=== PATIENT | male | born 1945 | race Caucasian/White ===

== ENCOUNTER 2023-02-06 17:32 | Inpatient (IN) | payer MEDICARE, OTHER ==
[~2023-02-06] VITALS: Ht 162.6 cm; Wt 72.1 kg
[2023-02-06 21:00] VITALS: BP 132/62; PULSE 84; RESP 19; TEMP 98.6; O2SAT 95
[2023-02-06] MEDS ORDERED: HydrALAZINE HCL 25 MG TABLET PO PRN (21:30)
[2023-02-06] MEDS: GABAPENTIN 300 MG CAPSULE PO SCH (22:21)
[2023-02-06] MEDS: SENNOSIDES 8.6 MG TABLET PO SCH (22:22)
[2023-02-06] MEDS: DOCUSATE SODIUM 100 MG CAPSULE PO SCH (22:23)
[2023-02-06] MEDS: ETHYL ALCOHOL 62% ANTISEPTIC NASAL SANITIZER 0.6 ML AMPUL NASAL SCH (22:23)
[2023-02-06] MEDS: ATORVASTATIN CALCIUM 40 MG TABLET PO SCH (22:23)
[2023-02-06] MEDS: ACETAMINOPHEN 325 MG TABLET PO PRN (23:40)
[2023-02-06] MEDS: HEPARIN SODIUM,PORCINE 5,000 UNITS/ML VIAL SQ SCH (23:41)
[2023-02-07 01:45] VITALS: O2SAT 95
[2023-02-07 07:38] LABS: BASOPHILS % (AUTO) 0.7 % (0.0-2.0); EOSINOPHILS % (AUTO) 3.3 % (1.0-6.0); HEMATOCRIT 43.7 % (41-53); HEMOGLOBIN 14.4 g/dL (13.5-17.5); LYMPHOCYTES % (AUTO) 32.6 % (22.0-44.0); MEAN CORPUSCULAR HEMOGLOBIN 30.4 pg (26.0-34.0); MEAN CORPUSCULAR HGB CONC 32.9 G/dL (31.0-37.0); MEAN CORPUSCULAR VOLUME 92 fL (80-100); MONOCYTES # (AUTO) 0.8 K/uL (0.1-1.0); MONOCYTES % (AUTO) 12.9 % (2.0-9.0); NEUTROPHILS # (AUTO) 3.1 K/uL (1.8-7.7); NEUTROPHILS % (AUTO) 50.5 % (40.0-70.0); PLATELET COUNT (AUTO) 193 K/uL (150-450); RED BLOOD CELL COUNT(AUTO) 4.74 MIL/uL (4.50-5.90); RED CELL DISTRIBUTION WIDTH 13.5 % (11.5-14.5)
[2023-02-07 07:55] LABS: ALANINE AMINOTRANSFERASE 40 U/L (12-78); ALBUMIN 2.9 g/dL (3.4-5.0); ALKALINE PHOSPHATASE 65 U/L (46-116); ANION GAP 5 mmol/L (8-16); ASPARTATE AMINOTRANSFERASE 33 U/L (15-37); BILIRUBIN,TOTAL 0.5 mg/dL (0.1-1.0); CALCIUM, TOTAL 8.7 mg/dL (8.8-10.5); CARBON DIOXIDE 30 mmol/L (22-29); CHLORIDE 107 mmol/L (98-107); CREATININE 1.02 mg/dL (0.60-1.30); GLOMERULAR FILTR. RATE CALC > 60 mL/min (>60); GLUCOSE,RANDOM 98 mg/dL (70-110); POTASSIUM 4.3 mmol/L (3.5-5.1); SODIUM SERUM 142 mmol/L (136-145); TOTAL PROTEIN, SERUM 6.1 g/dL (6.4-8.2)
[2023-02-07 08:00] VITALS: BP 128/73; PULSE 84; RESP 19; TEMP 98.8; O2SAT 98
[2023-02-07] MEDS: CLOPIDOGREL BISULFATE 75 MG TABLET PO SCH (08:00)
[2023-02-07] MEDS: DOCUSATE SODIUM 100 MG CAPSULE PO SCH ×2 (08:00→20:21)
[2023-02-07] MEDS: GABAPENTIN 300 MG CAPSULE PO SCH ×2 (08:00→20:22)
[2023-02-07] MEDS: TAMSULOSIN HCL 0.4 MG CAPSULE PO SCH (08:00)
[2023-02-07] MEDS: ASPIRIN 81 MG CHEWABLE TABLET PO SCH (08:00)
[2023-02-07] MEDS: ETHYL ALCOHOL 62% ANTISEPTIC NASAL SANITIZER 0.6 ML AMPUL NASAL SCH ×2 (08:01→20:22)
[2023-02-07] MEDS: HEPARIN SODIUM,PORCINE 5,000 UNITS/ML VIAL SQ SCH ×3 (08:01→23:05)
[2023-02-07 10:50] VITALS: O2SAT 98
[2023-02-07 20:11] VITALS: BP 106/59; PULSE 81; RESP 18; TEMP 98.3; O2SAT 97
[2023-02-07] MEDS: SENNOSIDES 8.6 MG TABLET PO SCH (20:21)
[2023-02-07] MEDS: ATORVASTATIN CALCIUM 40 MG TABLET PO SCH (20:21)
[2023-02-08 01:22] VITALS: O2SAT 97
[2023-02-08 07:26] LABS: CHOL/HDL RATIO 3.8 (4.2-7.3)
[2023-02-08] MEDS: HEPARIN SODIUM,PORCINE 5,000 UNITS/ML VIAL SQ SCH ×3 (08:37→23:07)
[2023-02-08] MEDS: GABAPENTIN 300 MG CAPSULE PO SCH ×2 (08:37→20:19)
[2023-02-08] MEDS: DOCUSATE SODIUM 100 MG CAPSULE PO SCH ×2 (08:37→20:19)
[2023-02-08] MEDS: TAMSULOSIN HCL 0.4 MG CAPSULE PO SCH (08:37)
[2023-02-08] MEDS: CLOPIDOGREL BISULFATE 75 MG TABLET PO SCH (08:37)
[2023-02-08] MEDS: ETHYL ALCOHOL 62% ANTISEPTIC NASAL SANITIZER 0.6 ML AMPUL NASAL SCH ×2 (08:37→20:19)
[2023-02-08] MEDS: ASPIRIN 81 MG CHEWABLE TABLET PO SCH (08:37)
[2023-02-08 09:37] VITALS: BP 108/74; PULSE 90; RESP 19; TEMP 97.9; O2SAT 96
[2023-02-08 20:00] VITALS: BP 135/73; PULSE 83; RESP 16; TEMP 98; O2SAT 97
[2023-02-08] MEDS: ATORVASTATIN CALCIUM 40 MG TABLET PO SCH (20:19)
[2023-02-08] MEDS: SENNOSIDES 8.6 MG TABLET PO SCH (20:19)
[2023-02-08] MEDS: MELATONIN 3 MG TABLET PO PRN (21:33)
[2023-02-08 23:42] VITALS: O2SAT 97
[2023-02-09] MEDS ORDERED: *PATIENT'S OWN MED [ENTER DRUG, DOSE, FREQUENCY IN COMMENTS] CLINICAL SCH (07:30)
[2023-02-09 08:00] VITALS: BP 103/51; PULSE 83; RESP 18; TEMP 98.2; O2SAT 100
[2023-02-09] MEDS: HEPARIN SODIUM,PORCINE 5,000 UNITS/ML VIAL SQ SCH ×3 (08:12→23:05)
[2023-02-09] MEDS: ASPIRIN 81 MG CHEWABLE TABLET PO SCH (08:12)
[2023-02-09] MEDS: ETHYL ALCOHOL 62% ANTISEPTIC NASAL SANITIZER 0.6 ML AMPUL NASAL SCH ×2 (08:12→20:15)
[2023-02-09] MEDS: DOCUSATE SODIUM 100 MG CAPSULE PO SCH ×2 (08:12→20:16)
[2023-02-09] MEDS: VASCEPA 1 GM PO SCH ×2 (08:12→17:18)
[2023-02-09] MEDS: CLOPIDOGREL BISULFATE 75 MG TABLET PO SCH (08:13)
[2023-02-09] MEDS: TAMSULOSIN HCL 0.4 MG CAPSULE PO SCH (08:13)
[2023-02-09] MEDS: GABAPENTIN 300 MG CAPSULE PO SCH ×2 (08:13→20:16)
[2023-02-09 09:14] VITALS: O2SAT 100
[2023-02-09] MEDS: MELATONIN 3 MG TABLET PO PRN (20:16)
[2023-02-09] MEDS: ATORVASTATIN CALCIUM 40 MG TABLET PO SCH (20:16)
[2023-02-09] MEDS: SENNOSIDES 8.6 MG TABLET PO SCH (20:16)
[2023-02-09 20:19] VITALS: BP 110/51; PULSE 81; RESP 16; TEMP 97.8; O2SAT 97
[2023-02-09 22:24] VITALS: O2SAT 97
[2023-02-10] MEDS ORDERED: FAMO20 PO (00:48)
[2023-02-10] MEDS ORDERED: ATOR20TA PO (00:48)
[2023-02-10] MEDS ORDERED: TAMS-13 PO (00:48)
[2023-02-10] MEDS ORDERED: GABA-1181 PO (00:48)
[2023-02-10 07:45] VITALS: BP 102/59; PULSE 78; RESP 18; TEMP 97.7; O2SAT 96
[2023-02-10] MEDS: TAMSULOSIN HCL 0.4 MG CAPSULE PO SCH (07:55)
[2023-02-10] MEDS: GABAPENTIN 300 MG CAPSULE PO SCH ×2 (07:55→20:52)
[2023-02-10] MEDS: ETHYL ALCOHOL 62% ANTISEPTIC NASAL SANITIZER 0.6 ML AMPUL NASAL SCH ×2 (07:55→20:52)
[2023-02-10] MEDS: VASCEPA 1 GM PO SCH ×2 (07:55→16:44)
[2023-02-10] MEDS: DOCUSATE SODIUM 100 MG CAPSULE PO SCH ×3 (07:55→20:53)
[2023-02-10] MEDS: HEPARIN SODIUM,PORCINE 5,000 UNITS/ML VIAL SQ SCH ×3 (07:55→20:52)
[2023-02-10] MEDS: ASPIRIN 81 MG CHEWABLE TABLET PO SCH (07:55)
[2023-02-10] MEDS: CLOPIDOGREL BISULFATE 75 MG TABLET PO SCH (07:55)
[2023-02-10] MEDS: DICLOFENAC SODIUM 1% 100 GM GEL [4GM] TP SCH ×2 (15:51→20:51)
[2023-02-10 19:35] VITALS: BP 132/72; PULSE 79; RESP 16; TEMP 97.4; O2SAT 98
[2023-02-10 19:39] VITALS: O2SAT 98
[2023-02-10] MEDS: MELATONIN 5 MG TABLET PO PRN (20:51)
[2023-02-10] MEDS: ATORVASTATIN CALCIUM 40 MG TABLET PO SCH (20:52)
[2023-02-10] MEDS: SENNOSIDES 8.6 MG TABLET PO SCH (20:52)
[2023-02-11 05:21] VITALS: O2SAT 98
[2023-02-11 08:30] VITALS: BP 111/59; PULSE 82; RESP 18; TEMP 97.6; O2SAT 94
[2023-02-11] MEDS: VASCEPA 1 GM PO SCH ×2 (08:32→18:33)
[2023-02-11] MEDS: ACETAMINOPHEN 325 MG TABLET PO PRN ×2 (08:34→21:45)
[2023-02-11] MEDS: CLOPIDOGREL BISULFATE 75 MG TABLET PO SCH (08:34)
[2023-02-11] MEDS: GABAPENTIN 300 MG CAPSULE PO SCH ×2 (08:34→20:06)
[2023-02-11] MEDS: ASPIRIN 81 MG CHEWABLE TABLET PO SCH (08:35)
[2023-02-11] MEDS: ETHYL ALCOHOL 62% ANTISEPTIC NASAL SANITIZER 0.6 ML AMPUL NASAL SCH ×2 (08:35→20:07)
[2023-02-11] MEDS: HEPARIN SODIUM,PORCINE 5,000 UNITS/ML VIAL SQ SCH ×3 (08:35→20:07)
[2023-02-11] MEDS: TAMSULOSIN HCL 0.4 MG CAPSULE PO SCH (08:35)
[2023-02-11] MEDS: DOCUSATE SODIUM 100 MG CAPSULE PO SCH ×3 (08:44→20:08)
[2023-02-11] MEDS: DICLOFENAC SODIUM 1% 100 GM GEL [4GM] TP SCH ×3 (09:15→20:07)
[2023-02-11 20:06] VITALS: BP 129/65; PULSE 77; RESP 16; TEMP 97.6; O2SAT 96
[2023-02-11] MEDS: ATORVASTATIN CALCIUM 40 MG TABLET PO SCH (20:06)
[2023-02-11] MEDS: SENNOSIDES 8.6 MG TABLET PO SCH (20:08)
[2023-02-11] MEDS: MELATONIN 5 MG TABLET PO PRN (21:44)
[2023-02-12] MEDS: ETHYL ALCOHOL 62% ANTISEPTIC NASAL SANITIZER 0.6 ML AMPUL NASAL SCH ×2 (07:56→20:35)
[2023-02-12] MEDS: VASCEPA 1 GM PO SCH ×2 (07:56→16:09)
[2023-02-12] MEDS: HEPARIN SODIUM,PORCINE 5,000 UNITS/ML VIAL SQ SCH ×3 (07:57→20:34)
[2023-02-12] MEDS: ASPIRIN 81 MG CHEWABLE TABLET PO SCH (07:57)
[2023-02-12] MEDS: CLOPIDOGREL BISULFATE 75 MG TABLET PO SCH (07:57)
[2023-02-12] MEDS: TAMSULOSIN HCL 0.4 MG CAPSULE PO SCH (07:57)
[2023-02-12] MEDS: DICLOFENAC SODIUM 1% 100 GM GEL [4GM] TP SCH ×3 (07:58→20:33)
[2023-02-12] MEDS: GABAPENTIN 300 MG CAPSULE PO SCH ×2 (07:58→20:34)
[2023-02-12 08:00] VITALS: BP 107/72; PULSE 68; RESP 18; TEMP 97.7; O2SAT 95
[2023-02-12] MEDS: DOCUSATE SODIUM 100 MG CAPSULE PO SCH ×2 (08:01→20:35)
[2023-02-12 20:00] VITALS: BP 125/70; PULSE 78; RESP 20; TEMP 98.3; O2SAT 96
[2023-02-12] MEDS: ATORVASTATIN CALCIUM 40 MG TABLET PO SCH (20:34)
[2023-02-12] MEDS: MELATONIN 5 MG TABLET PO PRN (20:34)
[2023-02-12] MEDS: SENNOSIDES 8.6 MG TABLET PO SCH (20:41)
[2023-02-13] MEDS ORDERED: ATOR40TA28 PO (03:19)
[2023-02-13] MEDS ORDERED: DOCU-385 PO ×2 (03:19→09:50)
[2023-02-13] MEDS ORDERED: ICOS1CAP PO (03:19)
[2023-02-13] MEDS ORDERED: CLOP75TA60 PO ×2 (03:19→09:50)
[2023-02-13] MEDS ORDERED: ASPI-1450 PO (03:19)
[2023-02-13] MEDS ORDERED: DICL100G51 TP ×2 (03:21→09:50)
[2023-02-13 08:30] VITALS: BP 119/51; PULSE 70; RESP 19; TEMP 98.1; O2SAT 95
[2023-02-13] MEDS: TAMSULOSIN HCL 0.4 MG CAPSULE PO SCH (08:59)
[2023-02-13] MEDS: ASPIRIN 81 MG CHEWABLE TABLET PO SCH (08:59)
[2023-02-13] MEDS: HEPARIN SODIUM,PORCINE 5,000 UNITS/ML VIAL SQ SCH (08:59)
[2023-02-13] MEDS: DOCUSATE SODIUM 100 MG CAPSULE PO SCH (09:00)
[2023-02-13] MEDS: CLOPIDOGREL BISULFATE 75 MG TABLET PO SCH (09:00)
[2023-02-13] MEDS: GABAPENTIN 300 MG CAPSULE PO SCH (09:00)
[2023-02-13] MEDS: DICLOFENAC SODIUM 1% 100 GM GEL [4GM] TP SCH (09:02)
[2023-02-13] MEDS: VASCEPA 1 GM PO SCH (09:02)
[2023-02-13] MEDS: ETHYL ALCOHOL 62% ANTISEPTIC NASAL SANITIZER 0.6 ML AMPUL NASAL SCH (09:02)
[2023-02-13] MEDS ORDERED: ASPI81 PO (09:50)
[2023-02-13] MEDS ORDERED: GABA-1181 PO (09:50)
[2023-02-13] MEDS ORDERED: FOLI-130 PO (09:50)
[2023-02-13] MEDS ORDERED: TAMS-13 PO (09:50)
[2023-02-13] MEDS ORDERED: ATOR40TA71 PO (09:50)
== END 2023-02-13 11:00 | disposition home health service (06) | DRG 65 ==
LOC: 2WR 20:25
PROVIDERS: ADMIT Physical Medicine & Rehabilitation; ATTEND Physical Medicine & Rehabilitation
DX: I63.9 Cerebral infarction, unspecified (principal); E46 Unspecified protein-calorie malnutrition; G81.91 Hemiplegia, unspecified affecting right dominant side; R47.01 Aphasia; R47.1 Dysarthria and anarthria; M19.90 Unspecified osteoarthritis, unspecified site; I10 Essential (primary) hypertension; E11.9 Type 2 diabetes mellitus without complications; R33.8 Other retention of urine; E78.5 Hyperlipidemia, unspecified; I65.22 Occlusion and stenosis of left carotid artery; N40.1 Benign prostatic hyperplasia with lower urinary tract symptoms; G43.909 Migraine, unspecified, not intractable, without status migrainosus; M54.50 Low back pain, unspecified; M25.569 Pain in unspecified knee; R41.89 Other symptoms and signs involving cognitive functions and awareness; R45.86 Emotional lability; Z85.038 Personal history of other malignant neoplasm of large intestine; Z68.27 Body mass index [BMI] 27.0-27.9, adult
CPT/HCPCS: 80053; 80061; 83036; 85025; 87081; 92507; 92523; 92610; 97110; 97112; 97116; 97150; 97162; 97166; 97530; 97535; 99366; J1644; Q9967